=== PATIENT | male | born 1995 | race Caucasian/White ===

== ENCOUNTER 2016-10-27 21:49 | Emergency (ER) | payer MEDICAID, OTHER ==
[2016-10-27] MEDS ORDERED: CEFTRIAXONE 1 GRAM DUPLEX 50 ML IV ONE (22:57)
[2016-10-27 23:04] LABS: ABSOLUTE NEUTROPHIL COUNT 5.6 K/mm3 (1.8-7.7); BASO % 0.3 % (0.2-1.0); EOS # 0.1 (0.0-0.5); EOS % 1.5 % (0.9-2.9); HEMATOCRIT 48.6 % (32.0-52.0); HEMOGLOBIN 16.1 gm/l (14.0-18.0); IMM NEUT% 0.3 % (0-1); LYMPH # 1.5 (1.0-4.8); LYMPH % 19.6 % (15-45); MEAN CORPUSCULAR HEMOGLOBIN 28.1 pg (27.0-31.0); MEAN CORPUSCULAR HGB CONC 33.1 g/dl (33.0-37.0); MEAN PLATELET VOLUME 10.3 fl (7.4-10.4); MONO # 0.5 (0.0-0.8); MONO % 6.5 % (4-12); NEUT % 71.8 % (43-75); PLATELET COUNT 230 K/mm3 (130-400); RED CELL DISTRIBUTION WIDTH 13.4 % (11.5-14.5)
[2016-10-27] MEDS ORDERED: SULFAMETHOXAZOLE 800 MG/TRIMETHOPRIM 160 MG TABLET ONE (23:41)
== END 2016-10-27 23:57 | disposition home or self-care (01) ==
LOC: ED 21:49
DX: J34.0 Abscess, furuncle and carbuncle of nose (principal); F17.210 Nicotine dependence, cigarettes, uncomplicated

== ENCOUNTER 2016-10-28 22:06 | Inpatient (IN) | payer MEDICAID ==
[2016-10-28] MEDS ORDERED: IOPAMIDOL 370 (76%) 100 ML VIAL IV ONE (22:07)
[2016-10-29] MEDS ORDERED: ONDANSETRON 4 MG/2ML 2 ML VIAL ONE (00:27)
[2016-10-29] MEDS ORDERED: LACTATED RINGERS 1,000 ML ONE (00:28)
[2016-10-29 01:13] LABS: ABSOLUTE NEUTROPHIL COUNT 5.7 K/mm3 (1.8-7.7); BASO % 0.3 % (0.2-1.0); EOS # 0.1 (0.0-0.5); EOS % 1.5 % (0.9-2.9); HEMATOCRIT 46.5 % (32.0-52.0); HEMOGLOBIN 15.2 gm/l (14.0-18.0); IMM NEUT% 0.3 % (0-1); LYMPH # 1.6 (1.0-4.8); LYMPH % 20.2 % (15-45); MEAN CELL VOLUME 85.5 fl (80.0-94.0); MEAN CORPUSCULAR HEMOGLOBIN 27.9 pg (27.0-31.0); MEAN CORPUSCULAR HGB CONC 32.7 g/dl (33.0-37.0); MONO # 0.5 (0.0-0.8); MONO % 6.5 % (4-12); NEUT % 71.2 % (43-75); PLATELET COUNT 241 K/mm3 (130-400); RED CELL DISTRIBUTION WIDTH 13.3 % (11.5-14.5)
[2016-10-29 01:23] LABS: CALCIUM 9.8 mg/dL (8.6-10.3)
[2016-10-29] MEDS ORDERED: VANCOMYCIN HCL 1 G/20 ML VIAL ONE (03:17)
[2016-10-29] MEDS ORDERED: SODIUM CHLORIDE 0.9% 500 ML ONE (03:21)
[2016-10-29 03:55] VITALS: BMI 24.7
[2016-10-29] MEDS ORDERED: BISACODYL 10 MG SUP PR PRN (03:56)
[2016-10-29] MEDS ORDERED: MAGNESIUM HYDROXIDE 30 ML UDCUP PO PRN (03:56)
[2016-10-29] MEDS ORDERED: BLISTEX LIPSTICK 1 EACH TP PRN (03:56)
[2016-10-29] MEDS ORDERED: BISACODYL 5 MG TABLET.EC PO PRN (03:56)
[2016-10-29] MEDS ORDERED: SODIUM CHLORIDE 0.9% 100 ML IV PRN (03:56)
[2016-10-29] MEDS ORDERED: MENTHOL/CETYLPYRD 1 EACH LOZENGE PO PRN (03:56)
[2016-10-29] MEDS ORDERED: PIPERACILLIN-TAZO PREMIX BAG 3.375 G in Premix (D5W) 50 ml 1 EACH IV SCH (04:30)
[2016-10-29] MEDS: ACETAMINOPHEN 325 MG TABLET PO PRN ×2 (04:47→11:47)
[2016-10-29] MEDS ORDERED: PIPERACILLIN-TAZO PREMIX BAG 50 ML IV ONE (04:48)
[2016-10-29] MEDS ORDERED: PUMP TUBING ONE (04:59)
[2016-10-29] MEDS ORDERED: ENOXAPARIN SODIUM 40 MG/0.4 ML SYRINGE SUB-Q SCH (09:00)
[2016-10-29] MEDS: DOCUSATE SODIUM 100 MG CAPSULE PO SCH ×3 (09:00→21:00)
[2016-10-29] MEDS: PIPERACILLIN-TAZO PREMIX BAG 3.375 G in Premix (D5W) 50 ml 1 EACH IV SCH ×2 (11:33→18:29)
[2016-10-29] MEDS: VANCOMYCIN HCL IV SCH ×2 (12:10→20:58)
[2016-10-29] MEDS: SODIUM CHLORIDE 0.9% IV SCH ×2 (12:10→20:58)
--- NOTE | 2016-10-29 16:24 | HP ---
JODI SOLIS [id number] DATE OF ADMISSION: 10/29/2016 CHIEF COMPLAINT: Facial swelling. HISTORY OF PRESENT ILLNESS: The patient is a 21-year-old incarcerated male who initially was seen in the [facility] Emergency Department on 10/27/2016 for swelling in the left nasal cavity. The swelling started as a small pimple which he popped and drained some purulent fluid and that was on 10/25/2016. He then developed progressive swelling in that area and on evaluation on 10/27/2016 he was prescribed Bactrim and Keflex, but despite taking the medication, he has had progression of the inflammation. In return, on 10/29/2016 for reevaluation, he had a CT of the facial bones showing some surrounding soft tissue induration essentially with cellulitis to the left buccal space along with 2.4 cm x 0.9 cm x 0.7 cm focus of hypoenhancement in the anterior portion of the nasal septum extending to the left nasolabial fold, and upper philtrum with a poorly defined rim of peripheral enhancement compatible with an early abscess versus phlegmon. Based on his outpatient treatment failure, he was referred to the Hospitalist service for admission. REVIEW OF SYSTEMS: Negative for any fevers, or chills. He has had no recent upper respiratory infections, no cough, dyspnea, chest pain, shortness of breath, wheezing, or palpitations. He has had no nausea or vomiting. No diarrhea, or constipation. No abdominal pain, or arthralgias, no headaches, fainting, blackouts or seizures, no urinary complaints. Review of systems is otherwise negative. PAST MEDICAL HISTORY: Negative for any chronic medical problems. He denies nay previous skin infections or methicillin-resistant Staphylococcus aureus infection. PAST SURGICAL HISTORY: Negative. ALLERGIES: HE HAS AN ALLERGY TO NONSTEROIDAL DRUGS. CURRENT MEDICATIONS: Consistent of: 1. Tylenol 650 mg scheduled twice daily. 2. Keflex 500 mg 4 times daily. 3. Bactrim DS 1 pill twice daily. FAMILY HISTORY: Family history is negative. SOCIAL HISTORY: Significant for smoking a pack per day since the age of 13. He has a history of methamphetamine and marijuana abuse, and last used a little over a week ago. He has been incarcerated for about a week. He denies any dependence and is single. He is currently residing at the [facility]. PRIMARY CARE PROVIDER: He does not have a primary care provider. PHYSICAL EXAMINATION: VITAL SIGNS: Show a temperature of 98.6. Pulse is 64. Blood pressure is 134/81. Respirations are 20. Oxygen saturation is 100% on room air. Body mass index is 24.7. Weight is 80.3 kilograms. GENERAL: This is a well-developed, well-nourished male in no acute distress. HEENT: Exam shows swelling and inflammation involving the soft tissues of the left nasolabial fold, the left upper philtrum and along the anterior aspect of the nasal septum with some increased warmth, tenderness, and redness. No fluctuance is identified. There is a crusted area of drainage in the anterior left nasal septum. Oropharynx shows no lesions except for some swelling of the left buccal space on the upper lip. NECK: Supple without lymphadenopathy or thyromegaly. CHEST: Lungs are clear to auscultation bilaterally. CARDIOVASCULAR: Exam reveals a regular rate and rhythm without a murmur. ABDOMEN: Soft, nontender, nondistended, with positive bowel sounds. EXTREMITIES: Show no peripheral edema. LABORATORY STUDIES: White blood cell count is 8, hemoglobin is 15, and platelet count is 241,000. Chemistry profile shows sodium 134, potassium 4.1, BUN 13, and creatinine 0.9. Culture of the drainage is pending so far is showing gram-positive cocci. ASSESSMENT AND PLAN: The patient has facial abscess with facial cellulitis, and has failed treatment with Keflex and Bactrim, suspect methicillin-resistant Staphylococcus aureus. He is admitted to the [facility] surge unit. He will be in contact isolation. He will be treated with Zosyn and vancomycin pending the culture results. He may require further drainage of the abscess. We will consider surgical consultation in the next few days if this is felt to be necessary. Further treatment and recommendation will depend on his hospital course. Venous thromboembolism risk is considered moderate and Lovenox has been prescribed. Job #: [id number] BRISEIDA/colby
--- NOTE | 2016-10-29 17:46 | CT ---
FACIAL BONES W/ CON COMPARISON: None. HISTORY: Seen in the prior day for cellulitis infection of the left side of the nose, worsening tonight. Technique: Intravenous injection 80 mL of Isovue-370. The facial bones were imaged with a [employer] Aqu[employer] [address] scanner. An automated dose reduction technique was used to minimize patient radiation dose. Dose information: CTDIvol (mGy) 28.80 DLP(mGycm) 639.80 FINDINGS: Bones: No fracture or bone destruction. Teeth: Extensive dental disease. Temporomandibular joints: Normal. Paranasal sinuses: Mild mucosal thickening in the left ethmoid air cells. Nose: 25 by 8 mm abscess of the left nasal alar and cartilaginous septum. Nasal passages: Normal. Orbits: Normal. Skull base: Normal. Upper cervical spine: Normal. Tongue: Normal. Salivary glands: Normal. Soft tissues: Marked edema of the superior lip. IMPRESSION: 1. 25 x 8 mm abscess of the left nasal alar and cartilaginous septum. 2. Cellulitis of the superior lip and philtrum. 3. Mild mucosal thickening of the left ethmoid air cells. Preliminary report by [facility] radiologist Qasim Phelps M.D. 10/29/2016 at 01:55
[2016-10-29] MEDS ORDERED: IV START KIT ONE (18:11)
[2016-10-30] MEDS ORDERED: PUMP TUBING ONE (00:27)
[2016-10-30] MEDS: PIPERACILLIN-TAZO PREMIX BAG 3.375 G in Premix (D5W) 50 ml 1 EACH IV SCH ×3 (00:46→13:20)
[2016-10-30 03:50] LABS: VANCOMYCIN TROUGH 12.6 ug/ml (5.0-10.0)
[2016-10-30] MEDS: SODIUM CHLORIDE 0.9% IV SCH ×3 (04:43→20:18)
[2016-10-30] MEDS: VANCOMYCIN HCL IV SCH ×3 (04:43→20:18)
[2016-10-30 06:16] LABS: ABSOLUTE NEUTROPHIL COUNT 2.2 K/mm3 (1.8-7.7); BASO % 0.7 % (0.2-1.0); EOS # 0.1 (0.0-0.5); EOS % 2.9 % (0.9-2.9); HEMATOCRIT 40.7 % (32.0-52.0); HEMOGLOBIN 12.8 gm/l (14.0-18.0); LYMPH # 1.4 (1.0-4.8); LYMPH % 33.7 % (15-45); MEAN CELL VOLUME 88.9 fl (80.0-94.0); MEAN CORPUSCULAR HEMOGLOBIN 27.9 pg (27.0-31.0); MEAN CORPUSCULAR HGB CONC 31.4 g/dl (33.0-37.0); MEAN PLATELET VOLUME 11.6 fl (7.4-10.4); MONO # 0.4 (0.0-0.8); MONO % 10.4 % (4-12); NEUT % 52.3 % (43-75); PLATELET COUNT 172 K/mm3 (130-400); RED CELL DISTRIBUTION WIDTH 13.2 % (11.5-14.5)
[2016-10-30 06:31] LABS: CALCIUM 9.1 mg/dL (8.6-10.3)
[2016-10-30 07:59] LABS: BAND 0 % (0-10); BASOPHIL 0 % (0-1); EOSINOPHIL 6 % (1-3); LYMPHOCYTE 30 % (15-45); MONOCYTE 4 % (4-12); NEUTROPHILS 60 % (43-75); PLATELET ESTIMATE NORMAL (NORMAL); TOTAL CELLS COUNTED 100
[2016-10-30] MEDS: DOCUSATE SODIUM 100 MG CAPSULE PO SCH ×2 (11:35→22:04)
--- NOTE | 2016-10-30 14:22 | PDOC43 ---
- Subjective Chief Complaint: facial swelling Subjective: Reports Pain Tolerable, Denies Fever - Objective Vital Signs Temperature 97.9 F 10/30/16 13:56 Pulse Rate 55 10/30/16 13:56 Respiratory Rate 18 10/30/16 13:57 Blood Pressure 116/61 10/30/16 13:56 O2 Saturation by Pulse Oximetry 100 10/30/16 13:56 Oxygen Delivery Method Room Air Oxygen Flow Rate 0 Intake and Output 10/29/16 10/30/16 10/31/16 06:59 06:59 06:59 Intake Total 2891 Output Total 1400 1350 Balance 1491 -1350 General: Alert, Oriented x3, Cooperative, No Acute Distress HEENT: Other (facial swelling slightly improved, no fluctuance) Lungs: Clear to Auscultation Bilaterally Cardiovascular: Regular Rate and Rhythm Abdomen: Soft, Normal Bowel Sounds, Non-Distended, No Tenderness Extremities: No Edema Laboratory 10/30/16 05:30 10/30/16 05:30 10/30/16 10/30/16 05:30 03:15 RBC 4.58 L MCHC 31.4 L Vancomycin Trough 12.6 H Current Medications: Current meds reviewed in EMR. - Problems: Assessment/Plan (1) Cellulitis and abscess of face Status: AcuteAssessment/Plan: failed treatment with keflex and bactrim, improving on Vancomycin and Zosyn, prelim Cx showing staph aureus-stop Zosyn, await final C and S results VTE Prophylaxis: lovenox Disposition: to be determined
[2016-10-31 01:56] VITALS: BP 106/50
== END 2016-10-31 04:00 | disposition other institution (70) | DRG 603 ==
LOC: ED 22:06 → MS 10-29 02:20
PROVIDERS: ADMIT Family Medicine; ATTEND Family Medicine
DX: L02.01 Cutaneous abscess of face (principal); F15.20 Other stimulant dependence, uncomplicated; J34.0 Abscess, furuncle and carbuncle of nose; K13.0 Diseases of lips; F17.210 Nicotine dependence, cigarettes, uncomplicated; F12.20 Cannabis dependence, uncomplicated; B95.62 Methicillin resistant Staphylococcus aureus infection as the cause of diseases classified elsewhere